=== PATIENT | female | born 1940 | race Caucasian/White ===

== ENCOUNTER 2018-04-20 19:03 | Emergency (ER) | payer MEDICARE ==
--- NOTE | 2018-04-20 20:14 | CT ---
CT FACIAL BONES 04/20/18 COMPARISON: None. HISTORY: Recent fall, trauma, pain to the nose and face. TECHNIQUE: Serial axial CT imaging is obtained at 2.5 mm intervals through the facial bones without contrast. Co malcolm and sagittal reformatted imaging obtained. FINDINGS: The imaged brain parenchyma appears grossly unremarkable. There is atherosclerotic calcification of t he cavernous carotid arteries bilaterally and the distal left vertebral artery. The frontal sinuses, ethmoid air cells, maxillary sinuses and sphenoid sinuses are grossly unremarkab le aside from mild mucosal thickening of the left sphenoid sinus posteriorly. There is no displaced nasal bone fracture. The zygomatic arches and the pterygoid plates appear intac t. There is moderate rightward nasal septal deviation with an associated rightward osseous spur. Neither temporomandibular joint appears dislocation and no acute mandibular fracture is present. There is degenerative change involving the temporomandibular joint on the right. There is multilevel upper cervical spine facet hypertrophy bilaterally, left greater than right. Coronal imaging demonstrates no evidence for fracture of the orbital floor or medial orbital wall on either side. IMPRESSION: No displaced facial bone fracture. POS: [facility]
== END 2018-04-20 19:49 | disposition home or self-care (01) ==
LOC: MADERS 19:03
DX: S00.33XA Contusion of nose, initial encounter (principal); E78.5 Hyperlipidemia, unspecified; Z79.82 Long term (current) use of aspirin; Z79.899 Other long term (current) drug therapy; W18.09XA Striking against other object with subsequent fall, initial encounter
CPT/HCPCS: 70486

== ENCOUNTER 2018-12-17 07:50 | Emergency (ER) | payer MEDICARE ==
[2018-12-17] MEDS ORDERED: Ketorolac Tromethamine 30 MG/ML VIAL ONE (08:38)
[2018-12-17] MEDS ORDERED: Ondansetron ODT 4 MG TAB ONE (08:38)
[2018-12-17 08:59] LABS: Bilirubin Negative (Negative); Blood, Urine Moderate (Negative); Clarity Slightly Cloudy (Clear); Glucose, Urine (Dipstick) 100 mg/dL (Negative); Leukocyte Trace (Negative); Nitrite Positive (Negative); Protein, Urine (Dipstick) Trace mg/dL (Neg-Trace); Specific Gravity, Urine 1.015 (1.005-1.030); pH, Urine 6.5 (5.0-9.0)
[2018-12-17 09:03] LABS: Bacteria/HPF 4+ HPF (None Seen); RBC/HPF 21-50 HPF (0-3)
[2018-12-17 09:04] LABS: #Neutrophils 5.7 thou/uL (1.40-6.50); %Basophils 0.4 % (0.0-1.0); %Eosinophils 0.6 % (0.0-10.0); %Lymphocytes 15.3 % (21.0-51.0); %Monocytes 4.1 % (0.0-10.0); %Neutrophils 79.6 % (42.0-75.0); Mean Corpuscular HGB CONC 32.3 g/dL (32.0-36.0); Mean Platelet Volume 9.5 fL (7.4-10.4); Platelet Count 157 thou/uL (130-400); RBC Distribution Width 12.6 % (11.5-14.5); Red Blood Cell (RBC) Count 4.33 mill/uL (4.20-5.40); White Blood Cell (WBC) Count 7.1 thou/uL (4.8-10.8)
[2018-12-17 09:05] LABS: #Lymphocytes 1.1 thou/uL (1.20-3.40); #Monocytes 0.3 thou/uL (0.11-0.59)
[2018-12-17 09:13] LABS: ALT (SGPT) 13 U/L (8-55); AST (SGOT) 18 U/L (5-34); Albumin 4.2 g/dL (3.4-4.8); Alkaline Phosphatase 86 U/L (40-150); Anion Gap 14 mmol/L (10-20); BUN (Urea Nitrogen) 19 mg/dL (9.8-20.1); Bilirubin, Total 0.4 mg/dL (0.2-1.2); Calc. Creatinine Clearance 0 mL/min (70-130); Calcium 9.8 mg/dL (7.8-10.44); Carbon Dioxide 26 mmol/L (23-31); Chloride 108 mmol/L (98-107); Estimated GFR-MDRD 81; Globulin 2.9 g/dL (2.4-3.5); Glucose 109 mg/dL (83-110); Protein, Total 7.1 g/dL (6.0-8.3); Sodium 144 mmol/L (136-145)
[2018-12-17] MEDS ORDERED: cefTRIAXone\\ROCEPHIN 1 GM VIAL ONE (09:36)
[2018-12-17] MEDS ORDERED: Sodium Chloride 0.9% 500 ML ONE (09:36)
--- NOTE | 2018-12-17 10:24 | CT ---
CT OF THE ABDOMEN AND PELVIS WITHOUT CONTRAST: COMPARISON: None. HISTORY: Abdominal pain. TECHNIQUE: Multiple contiguous axial images were obtained in a CT of the abdomen and pelvis without contrast. C oronal reformats were performed. FINDINGS: There is a tiny 1 mm calcification in the distal aspect of the right ureter at the right ureterovesic al junction. Mild right-sided hydronephrosis is seen. There are hypodensities in the bilateral margarita r regions of the kidneys which may represent parapelvic cysts. No other calcifications are seen in e ither kidney. The liver, gallbladder, adrenal glands, and pancreas are unremarkable, although evaluation is limited without IV contrast. Calcifications in the spleen are from prior granulomatous disease. No free air, free fluid, or stranding changes are seen in the abdomen or pelvis. The reproductive or ayden are unremarkable. The large and small bowel are unremarkable. The appendix is normal. No abdo cassandra or pelvic lymphadenopathy are seen. Degenerative changes are seen in the spine. Visualized inferior thorax and abdominal wall soft tissu es are unremarkable. IMPRESSION: 1. Tiny right distal ureteral calcification with mild right hydronephrosis. 2. Bilateral parapelvic renal cysts. POS: [facility]
== END 2018-12-17 10:09 | disposition home or self-care (01) ==
LOC: MADERS 07:50
DX: N13.2 Hydronephrosis with renal and ureteral calculous obstruction (principal); E78.5 Hyperlipidemia, unspecified
CPT/HCPCS: 74176; 80053; 81003; 81015; 85025; 87077; 87086; 87186; 96365; 96375; J0696; J1885; J7050; Q0162

== ENCOUNTER 2020-09-19 21:37 | Emergency (ER) | payer MEDICARE | END 2020-09-19 22:09 | disposition home or self-care (01) | LOC: MADERS 21:37 | DX: I10 Essential (primary) hypertension (principal); E78.00 Pure hypercholesterolemia, unspecified; E78.5 Hyperlipidemia, unspecified; Z79.82 Long term (current) use of aspirin; Z87.442 Personal history of urinary calculi; Z79.899 Other long term (current) drug therapy | CPT/HCPCS: 93005 ==

== ENCOUNTER 2021-01-06 17:48 | Outpatient (CLI) | payer MEDICARE | END 2021-01-06 17:49 | disposition home or self-care (01) | LOC: MADLAB 17:48 | PROVIDERS: ATTEND Family Medicine | DX: N30.00 Acute cystitis without hematuria (principal) | CPT/HCPCS: 87077; 87086; 87186 ==